=== PATIENT | female | born 1980 | race Caucasian/White ===

== ENCOUNTER 2023-04-22 22:26 | Emergency (ER) | payer OTHER ==
[2023-04-22 22:58] VITALS: BP 124/88; PULSE 88; RESP 16; TEMP 98.2; BMI 25.9
[2023-04-22] MEDS ORDERED: DIPHTH,PERTUSS(ACELL),TET 0.5 ML DISP.SYRIN IM ONE (22:58)
[2023-04-22] MEDS: DIPHTH,PERTUSS(ACELL),TET 0.5 ML DISP.SYRIN IM ONE (22:59)
== END 2023-04-22 23:02 | disposition home or self-care (01) ==
LOC: FER 22:26
PROC: 0HQFXZZ Repair Right Hand Skin, External Approach (ICD-10-PCS; principal; 2023-04-22)
PROC: 3E0234Z Introduction of Serum, Toxoid and Vaccine into Muscle, Percutaneous Approach (ICD-10-PCS; 2023-04-22)
DX: S61.411A Laceration without foreign body of right hand, initial encounter (principal); W26.8XXA Contact with other sharp object(s), not elsewhere classified, initial encounter; Y93.E8 Activity, other personal hygiene
CPT/HCPCS: 12001-25; 90471; 90715; 99283-25

== ENCOUNTER 2023-04-30 20:39 | Emergency (ER) | payer OTHER ==
[2023-04-30 21:01] VITALS: BP 113/80; PULSE 75; RESP 16; TEMP 97.9; BMI 25.7
== END 2023-04-30 21:56 | disposition home or self-care (01) ==
LOC: FER 20:39
DX: Z48.02 Encounter for removal of sutures (principal)
CPT/HCPCS: 99281-25